=== PATIENT | male | born 1985 | race Caucasian/White ===

== ENCOUNTER 2016-09-27 22:54 | Emergency (ER) | payer SELFPAY ==
[~2016-09-27 22:54] MED LIST: NO HOME MEDS
[2016-09-27] MEDS ORDERED: TRAZODONE HCL100 M1 PO (23:22)
[2016-09-27] MEDS ORDERED: SEROQUEL XR150 M1 PO (23:22)
[2016-09-27] MEDS ORDERED: HYDROXYZINE HCL10 M1 (23:23)
[2016-09-28 00:18] LABS: URINE BILIRUBIN NEGATIVE (NEG); URINE BLOOD NEGATIVE (NEG); URINE GLUCOSE (UA) NEGATIVE (NEG); URINE KETONE NEGATIVE (NEG); URINE LEUKOCYTE ESTERASE NEGATIVE (NEG); URINE NITRITE NEGATIVE (NEG); URINE PROTEIN NEGATIVE (NEG)
[2016-09-28 00:19] LABS: URINE APPEARANCE HAZY; URINE COLOR YELLOW
[2016-09-28 00:27] LABS: BASO % 0.2 % (0-2); EOS % 0.7 % (0-7); HCT-HEMATOCRIT 40.8 % (36.0-53.5); HGB-HEMOGLOBIN 14.7 gm/dl (13.5-17.0); IMMATURE GRANULOCYTES ABSOLUTE 0.01 tho/cmm (0-0.03); IMMATURE GRANULOCYTES PERCENT 0.2 % (0-0.3); LYMPH % 25.2 % (20-45); LYMPH ABSOLUTE COUNT 1.4 tho/cmm (0.8-4.5); MCH (MEAN CORPUSCULAR HGB) 32.7 pg (28.0-32.0); MCV (MEAN CELL VOLUME) 90.7 fl (82.0-96.0); MEAN PLATELET VOLUME 8.8 cmc (9.4-12.4); MONO % 12.3 % (0-12); MONOCYTE ABSOLUTE COUNT 0.7 tho/cmm (0.0-1.2); NEUTROPHIL ABSOLUTE COUNT 3.3 tho/cmm (1.6-8.0); NEUTROPHIL-AUTOMATED 3.3 tho/cmm (1.6-8.0); NEUTROPHILS % 61.4 % (40-80); PLATELET COUNT 115 tho/cmm (150-450); RED CELL DISTRIBUTION WIDTH 12.7 % (12.4-16.4); WHITE BLOOD COUNT 5.4 tho/cmm (4.0-10.0)
[2016-09-28 00:34] LABS: BLOOD UREA NITROGEN 14 mg/dl (6-24); CALCIUM 8.6 mg/dl (8.5-10.5); CARBON DIOXIDE-VENOUS 28 mmol/L (22-32); CREATININE 0.76 mg/dl (0.60-1.30); GLUCOSE 90 mg/dL (70-110); eGFR VALUE FOR BLACK >90 mL/Min
[2016-09-28 01:18] LABS: POTASSIUM 4.1 mmol/L (3.5-5.3); SODIUM 136 mmol/L (135-146)
[2016-09-28 01:21] LABS: ANION GAP 10 mmol/L (0-20); CHLORIDE 102 mmol/l (96-110)
[2016-09-28] MEDS ORDERED: NORCO 5/3251 TAB PO (01:48)
[2016-09-28] MEDS ORDERED: CYCLOBENZAPRINE10 M1 PO (01:48)
== END 2016-09-28 01:59 ==
LOC: EDMED 22:54
PROVIDERS: Emergency Medicine
DX: M54.6 Pain in thoracic spine (principal); D69.6 Thrombocytopenia, unspecified; I10 Essential (primary) hypertension; F17.200 Nicotine dependence, unspecified, uncomplicated
CPT/HCPCS: J1885; J2270; J2405; J3360; J7030